=== PATIENT | male | born 1960 | race Asian ===

== ENCOUNTER 2017-02-16 11:16 | Emergency (ER) | payer OTHER ==
[~2017-02-16] VITALS: Ht 170.2 cm; Wt 81.6 kg
[2017-02-16] MEDS ORDERED: GLIP5TAB12 PO (11:21)
[2017-02-16 12:21] LABS: BASOPHILS % 0.8 % (0.0-2.0); EOSINOPHILS % 3.8 % (0.0-5.0); HEMOGLOBIN. 9.1 g/dL (14.0-18.0); LYMPHOCYTES % 13.5 % (20.0-50.0); MEAN CORPUSCULAR HEMOGLOBIN 31.5 pg (28.0-32.0); MEAN CORPUSCULAR HGB CONC 35.1 g/dL (31.0-37.0); MEAN CORPUSCULAR VOLUME 89.5 fL (80.0-94.0); MONOCYTES % 9.8 % (2.0-8.0); NEUTROPHILS % 72.1 % (40.0-76.0); PLATELET 174 x1000/uL (130-400); RED BLOOD CELL COUNT 2.91 mill/uL (4.7-6.1); RED CELL DISTRIBUTION WIDTH 14.4 % (11.6-14.6); WHITE BLOOD COUNT 7.6 x1000/uL (4.5-11.0)
[2017-02-16 12:29] LABS: PROTHROMBIN TIME 10.5 sec
[2017-02-16 12:31] LABS: ALBUMIN 3.1 g/dL (3.4-5.0); ANION GAP 16; CALCIUM 8.2 mg/dL (8.5-10.1); CARBON DIOXIDE 28 mEq/L (21-32); CHLORIDE 100 mEq/L (98-107); INDEX HEMOLYSI 1 (1-3); INDEX ICTERIC 1 (1-4); INDEX LIPEMIC 1 (1-3)
[2017-02-16 12:35] LABS: ALANINE AMINOTRANSFERASE 24 IU/L (13-61); eGFR 7 mL/min (>60)
[2017-02-16 12:37] LABS: UREA NITROGEN BLOOD 83 mg/dL (7-21)
[2017-02-16 16:13] VITALS: BP 143/74
== END 2017-02-16 16:15 | disposition short-term general hospital (02) ==
LOC: ER 11:16
DX: S69.90XA Unspecified injury of unspecified wrist, hand and finger(s), initial encounter (principal); E11.9 Type 2 diabetes mellitus without complications; I10 Essential (primary) hypertension; Z79.84 Long term (current) use of oral hypoglycemic drugs; X58.XXXA Exposure to other specified factors, initial encounter; Y93.89 Activity, other specified; Y92.9 Unspecified place or not applicable; Y99.8 Other external cause status
CPT/HCPCS: 36415; 80053; 85025; 85610; 99285